=== PATIENT | female | born 1995 | race Caucasian/White ===

== ENCOUNTER 2016-08-17 10:03 | Emergency (ER) | payer OTHER ==
[2016-08-17 10:17] VITALS: BP 121/53; PULSE 55; TEMP 99.3; BMI 24.7
--- NOTE | 2016-08-17 10:34 | PDOC ---
History of Present Illness - General Chief Complaint: Head/Neck problem Stated Complaint: PT STATES SHE THINKS SHE HAS A CONCUSSION FELL 2 Time Seen by Provider: 08/17/16 10:15 History Source: Patient Exam Limitations: No Limitations - History of Present Illness Initial Comments: 08/17/16 10:33 21y F no pmhx presents for evaluation of head injury. The pt states she fell 2 days ago, was walking up a hill, lost her balance and struck the back of her head on a low wall. She felt initially alittle dizzy with pain to her head w/o any nausea/vomiting, vision changes, neck pain, but yesterday was completely asypmtomatic. 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 Pt was concerned about a concussion so presented to the ED. Constitutional - no reported Fever, Chills, HEENT: no reported vision changes, sore throat Respiratory: no reported cough, sob, hemoptysis Cardiac: no reported chest pain, palpitations, light headedness, leg swelling Abd/GI: no reported abd pain, nausea, vomiting, blood per rectum, melena, diarrhea : no reported dysuria, frequency, discharge Musculskelatal - no reported back pain, joint swelling skin - no reported bruising, erythema, rash neurological: no reported headache, numbness, focal weakness, tingling, ataxia, hematologic: no reported anemia, easy bruising, easy bleeding GENERAL: The patient is awake, alert, and fully oriented, Nontoxic - in no acute distress. HEAD: Normocephalic, mild tenderness/soft tissue swelling to posterior scalp/ occiptum. EYES: pupils 4mm and symmerically reactive. extraocular movements intact, sclera anicteric, conjunctiva clear. ENT: Normal voice, Moist mucous membranes. NECK/BACK: Normal range of motion, supple, no focal tenderness on cervical/ thoracic/lumbar spine ABDOMEN: Soft, nontender, normoactive bowel sounds. No guarding, no rebound. . No CVA tenderness EXTREMITIES: Normal range of motion, no edema. No clubbing or cyanosis. No cords, erythema, or tenderness. NEUROLOGICAL: No facial assymetry, Normal speech, moving all 4 extremities spontaneously and symmetrically, normal gait, sensation intact distally PSYCH: Normal mood, normal affect. SKIN: Warm, Dry, normal turgor, Past History - Past Medical History Allergies/Adverse Reactions: Allergies Allergy/AdvReac Type Severity Reaction Status Date / Time No Known Allergies Allergy Unverified 08/17/16 10:05 Home Medications: Ambulatory Orders NK [No Known Home Medication] 08/17/16 Other medical history: DENIES - Psycho/Social/Smoking Cessation Hx Anxiety: No Suicidal Ideation: No Smoking History: Never smoked Information on smoking cessation initiated: No Hx Alcohol Use: Yes (SOCIAL) Drug/Substance Use Hx: No Substance Use Type: Alcohol *Physical Exam - Vital Signs Last Vital Signs Temp Pulse Resp BP Pulse Ox 99.3 F 55 L 16 121/53 100 08/17/16 10:04 08/17/16 10:04 08/17/16 10:04 08/17/16 10:04 08/17/16 10:04 Medical Decision Making - Medical Decision Making 08/17/16 10:40 likely scalp contusion weakness likely secondary to minimal sleep last night doubt concussion but not impossible due to lack of headache and other neurologic sypmtoms will dfer CT head will have pt get some rest and return if symptoms not improved or worsening farooq have pt fu with pmd I discussed the physical exam findings, ancillary test results and final diagnoses with the patient. I answered all of the patient's questions. The patient was satisfied with the care received and felt comfortable with the discharge plan and treatment plan. The patient will call their primary care physician within 24 hours to arrange follow-up and will return to the Emergency Department with any new, persistent or worsening symptoms. *DC/Admit/Observation/Transfer Diagnosis at time of Disposition: Head injury due to trauma Qualifiers: Encounter type: initial encounter Qualified Code(s): S09.90XA - Unspecified injury of head, initial encounter - Discharge Dispostion Disposition: HOME Condition at time of disposition: Stable - Referrals Referrals: [facility] [Provider Group] - Patient Instructions Printed Discharge Instructions: DI for Closed Head Injury Additional Instructions: Return to the emergency department immediately with ANY new, persistent or worsening symptoms including any heaadche, blurry vision, n/v, dizziness, numbness/tingling/weakness or other concerns. You MUST call and follow up with your doctor tomorrow for further evaluation of your symptoms. Results were discussed with you. Please make sure your doctor reviews the results of your emergency evaluation. Print Language: ESTONIAN
== END 2016-08-17 11:03 | disposition home or self-care (01) ==
LOC: FER 10:03
DX: S09.90XA Unspecified injury of head, initial encounter (principal); W22.01XA Walked into wall, initial encounter; Y93.9 Activity, unspecified; Y92.9 Unspecified place or not applicable
CPT/HCPCS: 99282-25